=== PATIENT | female | born 1975 | race Hispanic/Latino ===

== ENCOUNTER → 2018-08-10 | Outpatient (CLI) | payer OTHER | END | disposition home or self-care (01) | LOC: OIH 14:21 | PROVIDERS: ATTEND Internal Medicine Cardiovascular Disease | DX: Z13.6 Encounter for screening for cardiovascular disorders (principal) | CPT/HCPCS: 75571 ==

== ENCOUNTER → 2018-10-06 | Outpatient (CLI) | payer OTHER | END | disposition home or self-care (01) | LOC: SHCH 08:01 | PROVIDERS: ATTEND Internal Medicine Cardiovascular Disease | DX: I10 Essential (primary) hypertension (principal) | CPT/HCPCS: 93306 ==

== ENCOUNTER 2021-11-12 11:43 | Emergency (ER) | payer OTHER ==
[~2021-11-12] VITALS: Ht 152.4 cm; Wt 123.8 kg
[2021-11-12 11:51] VITALS: BP 132/73
[2021-11-12] MEDS ORDERED: ACET-2079 PO (13:36)
[2021-11-12] MEDS ORDERED: TIZA4CAP8 PO (13:36)
== END 2021-11-12 13:55 | disposition home or self-care (01) ==
LOC: EDH 11:43
DX: M62.830 Muscle spasm of back (principal); M25.512 Pain in left shoulder; R07.89 Other chest pain; Z88.6 Allergy status to analgesic agent; V49.69XA Unspecified car occupant injured in collision with other motor vehicles in traffic accident, initial encounter; Y93.89 Activity, other specified; Y92.413 State road as the place of occurrence of the external cause; Y99.8 Other external cause status
CPT/HCPCS: 71046; 73000

== ENCOUNTER → 2024-06-18 | Outpatient (CLI) | payer OTHER ==
[~2024-06-18] MED LIST: ACET-2079 PO; TIZA4CAP8 PO
--- NOTE | 2024-06-18 14:07 | HMCIMG ---
CT HEART SAVER PROMOTIONAL HISTORY: Cardiac calcification scoring. FINDINGS: The cardiac calcification scoring is 332.7. LM = 82.5, LAD = 17.3, CX = 110.6, and RCA = 122.4 Limited examination of the heart was performed. The study is done for additional or incidental findings. IMPRESSION: No additional findings.
== END | disposition home or self-care (01) ==
LOC: RAH 12:31
PROVIDERS: ATTEND Internal Medicine Cardiovascular Disease
DX: Z13.6 Encounter for screening for cardiovascular disorders (principal)
CPT/HCPCS: 75571

== ENCOUNTER → 2024-08-09 | Outpatient (CLI) | payer SELFPAY ==
[~2024-08-09] MED LIST changes: +IOHEXOL 350 MG/ML 100ML INFUS..BTL IV ONE; +metoPROLOL tartRATE 1 MG/ML 5ML VIAL IV ONE
--- NOTE | 2024-08-09 11:08 | HMCIMG ---
CT OF THE CHEST WITH CONTRAST- CT Cardiac Angio co-interpretation This is done as part of the CT cardiac angiogram study. The interpretation of the coronary arteries will be done by spot man in a separate report. History: over-read Comparison: none CT Dose Index (CTDI): 77.90 mGy Dose Length Product (DLP): 493.40 total mGy PROTOCOL: Examination is done at 2.5 millimeter volumetric acquisition after contrast administration with Isovue 370, 100 cc IV, without complications. Photography is done at 5 millimeter thick intervals for the thorax. The examination begins above the heart and therefore the lung apices are incompletely included. The rest of the left lung is included but the right lung is only included up to its middle third. The periphery of the right lung is not included in the study. FINDINGS: The visualized part of the airway is preserved. The bony and soft tissue structures of the chest wall are unremarkable. The aorta is unremarkable. No mediastinal lymphadenopathy is seen. The lung windows demonstrate no worrisome pulmonary nodules, masses or infiltrates. There is no evidence of pulmonary embolism in the visualized lung segments. The upper abdominal views are unremarkable. Impression: No significant abnormalities identified.
== END | disposition home or self-care (01) ==
LOC: RAH 09:00
PROVIDERS: ATTEND Internal Medicine Cardiovascular Disease
DX: I25.10 Atherosclerotic heart disease of native coronary artery without angina pectoris (principal)
CPT/HCPCS: 75574; J3490; Q9967